=== PATIENT | female | born 1950 | race Caucasian/White ===

== ENCOUNTER 2017-07-31 10:37 | Emergency (ER) | payer MEDICARE, BC ==
[2017-07-31 11:24] VITALS: BP 108/68
--- NOTE | 2017-07-31 11:54 | UC ---
Respiratory Complaint HPI - HPI Summary HPI Summary: 2 weeks of sinus congestion and cough--in past 7 days has had harsh cough with thick green sputum, does not believe she has had fever - History of Current Complaint Hx Obtained From: Patient ?: No Onset/Duration: Gradual Onset, Lasting Weeks - 2, Worse Since - past 7 days Timing: Constant Pain Intensity: 0 Pain Scale Used: 0-10 Numeric Character: Cough: Productive, Sputum Description: - thick green Aggravating Factors: Nothing Alleviating Factors: Nothing Associated Signs And Symptoms: Positive: Wheezing, URI <Anca Sims - Last Filed: 07/31/17 11:59> <Raysa Zaman - Last Filed: 07/31/17 13:05> - History of Current Complaint Chief Complaint: UCRespiratory Stated Complaint: UPPER RESPIRATORY Time Seen by Provider: 07/31/17 11:45 - Allergies/Home Medications Allergies/Adverse Reactions: Allergies Allergy/AdvReac Type Severity Reaction Status Date / Time enviromental Allergy Unknown Congestion Uncoded 07/31/17 11:14 Home Medications: Home Medications D-Methorphan/PE/Acetaminophen [Day Multi-Symp Flu-Severe Cold] 1 each PO PRN 04/18 [History] Levothyroxine TAB* [Synthroid TAB*] 50 mcg PO DAILY 07/31/17 [History Confirmed 07/31/17] Multivitamin [Multiple Vitamins] 1 tab PO DAILY 07/31/17 [History Confirmed 04/18] Rosuvastatin (NF) [Crestor (NF)] 10 mg PO DAILY 07/31/17 [History Confirmed 04/18] PMH/Surg Hx/FS Hx/Imm Hx Previously Healthy: No Endocrine History: Hypothyroidism, Dyslipidemia - Surgical History Surgical History: Yes Surgery Procedure, Year, and Place: BREAST BIOPSIES- BENIGN - Family History Known Family History: Positive: None - Social History Occupation: Retired Lives: Alone Alcohol Use: Occasionally Substance Use Type: None Smoking Status (MU): Never Smoked Tobacco <Anca Sims - Last Filed: 07/31/17 11:59> Review of Systems Constitutional: Negative Skin: Negative Eyes: Negative ENT: Nasal Discharge, Sinus Congestion Respiratory: Cough Cardiovascular: Negative Gastrointestinal: Negative Genitourinary: Negative Motor: Negative Neurovascular: Negative Musculoskeletal: Negative Neurological: Negative Psychological: Negative Is Patient Immunocompromised?: No All Other Systems Reviewed And Are Negative: Yes <Anca Sims - Last Filed: 07/31/17 11:59> Physical Exam Triage Information Reviewed: Yes Appearance: Well-Appearing, No Pain Distress, Well-Nourished Vital Signs: Initial Vital Signs Temp 98.4 F 07/31/17 11:16 Pulse 63 07/31/17 11:16 Resp 18 07/31/17 11:16 BP 108/68 07/31/17 11:16 Pulse Ox 98 07/31/17 11:16 Vital Signs Reviewed: Yes Eye Exam: Normal Eyes: Positive: Conjunctiva Clear ENT Exam: Normal ENT: Positive: Normal ENT inspection, Hearing grossly normal, Pharynx normal, Nasal congestion, Nasal drainage, TMs normal, Uvula midline. Negative: Trismus , Muffled voice, Hoarse voice, Dental tenderness, Sinus tenderness Dental Exam: Normal Neck exam: Normal Neck: Positive: Supple, Nontender, No Lymphadenopathy Respiratory Exam: Normal Respiratory: Positive: Chest non-tender, No respiratory distress, No accessory muscle use, Wheezing Cardiovascular Exam: Normal Cardiovascular: Positive: RRR, No Murmur, Pulses Normal, Brisk Capillary Refill Musculoskeletal Exam: Normal Musculoskeletal: Positive: Strength Intact, ROM Intact, No Edema Neurological Exam: Normal Neurological: Positive: Alert, Muscle Tone Normal Psychological Exam: Normal Skin Exam: Normal <Anca Sims - Last Filed: 07/31/17 11:59> Vital Signs: Initial Vital Signs Temp 98.4 F 07/31/17 11:16 Pulse 63 07/31/17 11:16 Resp 18 07/31/17 11:16 BP 108/68 07/31/17 11:16 Pulse Ox 98 07/31/17 11:16 <Raysa Zaman - Last Filed: 07/31/17 13:05> UC Diagnostic Evaluation - Laboratory O2 Sat by Pulse Oximetry: 98 <Anca Sims - Last Filed: 07/31/17 11:59> Respiratory Course/Dx - Course Course Of Treatment: increase fluids, albuterol, flonase, zithromax, tylenol/ ibuprofen for pain follow with pcp prn - Differential Dx/Diagnosis Provider Diagnoses: acute bronchitis, bronchospasm <Anca Sims - Last Filed: 07/31/17 11:59> Discharge - Sign-Out/Discharge Documenting (check all that apply): Discharge/Admit/Transfer - Billing Disposition and Condition Condition: STABLE Disposition: HOME <Anca Sims - Last Filed: 07/31/17 11:59> - Billing Disposition and Condition Condition: STABLE Disposition: HOME <Raysa Zaman - Last Filed: 07/31/17 13:05> - Discharge Plan Condition: Stable Disposition: HOME Prescriptions: Albuterol HFA INHALER* [Ventolin HFA Inhaler*] 2 puff INH Q4H PRN #1 mdi PRN Reason: cough/wheeze Azithromycin TAB* [Zithromax TAB (Z-SIMA) 250 mg #6 tabs] 2 tab PO .TODAY, THEN 1 DAILY #1 sima Fluticasone NASAL SPRAY 50MCG* [Flonase NASAL SPRAY 50MCG*] 2 spray BOTH NARES DAILY #1 btl Patient Education Materials: Acute Bronchitis (ED), How to Use a Metered-Dose Inhaler and a Spacer (ED), How to Use Nasal Rowdy (ED) Referrals: Dony Francois MD [Primary Care Provider] - If Needed Attestation Statement User Type: Provider - I was available for consult. This patient was seen by the CRIST[facility]. The patient was not presented to, seen by, or examined by me. -Dustin <Raysa Zaamn - Last Filed: 07/31/17 13:05>
== END 2017-07-31 12:06 | disposition home or self-care (01) ==
LOC: UCCORT 10:37
DX: J21.9 Acute bronchiolitis, unspecified (principal); R09.81 Nasal congestion; E03.9 Hypothyroidism, unspecified; Z79.899 Other long term (current) drug therapy; Z91.09 Other allergy status, other than to drugs and biological substances
CPT/HCPCS: 99212; G0463

== ENCOUNTER 2021-10-11 13:00 | Inpatient (IN) ==
[2021-10-11 13:24] LABS: Hematocrit 28 % (35-47); Hemoglobin 9.3 g/dL (12.0-16.0); Mean Corpuscular HGB Conc 33 g/dL (31-36); Mean Corpuscular Hemoglobin 28 pg (27-31); Mean Corpuscular Volume 84 fL (80-97); Mean Platelet Volume 6.1 fL (7.4-10.4); Platelet Count 226 10^3/uL (150-450); Red Blood Count 3.36 10^6 /uL (3.70-4.87); Red Cell Distribution Width 21 % (10-15); White Blood Count 1.2 10^3/uL (3.5-10.8)
[2021-10-11 13:53] LABS: INR 1.1 (0.89-1.11)
[2021-10-11 14:05] LABS: Albumin 3.6 g/dL (3.2-5.2); Albumin/Globulin Ratio 1.4 (1-3); C Reactive Protein 78.26 mg/L (<8.01); Calcium 8.3 mg/dL (8.6-10.3); Globulin 2.5 g/dL (2-4); Potassium 3.4 mmol/L (3.5-5.0); Total Bilirubin 0.6 mg/dL (0.2-1.0); Total Protein 6.1 g/dL (6.4-8.9); eGFR CKD-EPI 100.2 (>60)
[2021-10-11 14:08] LABS: ABS Lymphocytes 0.1 10^3/ul (1.0-4.8); ABS Monocytes 0.3 10^3/ul (0-0.8); ABS Neutrophils 0.8 10^3/ul (1.5-7.7); Eosinophil % 1.1 %; Lymphocyte % 7.7 %; Nucleated Red Blood Cells % 0.4
[2021-10-11] MEDS ORDERED: Famotidine IV 10 MG/ML 2 ml VIAL (20 mg) IV SLOW PU ONE (14:19)
[2021-10-11] MEDS ORDERED: methylPREDNISolone SOD SUCC 125 mg 2 ML VIAL IV ONE (14:30)
[2021-10-11] MEDS ORDERED: fentaNYL 100 mcg/2 ml 50 MCG/ML VIAL IV SLOW PU ONE ×2 (14:53→15:37)
[2021-10-11] MEDS ORDERED: Ondansetron 4 mg VIAL 2 MG/ML 2 ml VIAL IV ONE (15:37)
[2021-10-11 16:53] LABS: Erythrocyte Sed Rate 60 mm/Hr (0-29)
[2021-10-11] MEDS ORDERED: Potassium Chlor 20 meq TAB.ER PO ONE ×2 (17:48)
[2021-10-11 18:20] LABS: HDL Cholesterol 46.9 mg/dL
[2021-10-11] MEDS ORDERED: Ondansetron ODT 4 mg TAB 4 MG TAB PO PRN (18:46)
[2021-10-11] MEDS: Enoxaparin 40 MG/0.4 ML SYR SUBCUT SCH (18:55)
[2021-10-11] MEDS: fentaNYL Patch Check Q Shift NOTE FOLLOW UP SCH (20:36)
[2021-10-11] MEDS: Mupirocin 2% OINT TUBE TOPICAL SCH (21:01)
[2021-10-11] MEDS: Magnesium Hydroxide LIQ 30 ML UDC PO PRN (23:20)
[2021-10-11] MEDS: Senna TAB 8.6 mg TAB PO PRN (23:21)
[2021-10-12] MEDS ORDERED: Albuterol HFA INHALER 8 gm MDI INH PRN (00:55)
[2021-10-12 01:16] LABS: Urine Appearance Clear; Urine Bilirubin Negative (Negative); Urine Blood Negative (Negative); Urine Color Yellow; Urine Glucose 1+ (250mg/dL) (Negative); Urine Ketones Negative (Negative); Urine Nitrite Negative (Negative); Urine Protein Negative (Negative)
[2021-10-12 05:05] LABS: Hematocrit 29 % (35-47); Hemoglobin 9.7 g/dL (12.0-16.0); Mean Corpuscular HGB Conc 33 g/dL (31-36); Mean Corpuscular Hemoglobin 29 pg (27-31); Mean Corpuscular Volume 87 fL (80-97); Red Blood Count 3.37 10^6 /uL (3.70-4.87); Red Cell Distribution Width 21 % (10-15); White Blood Count 1.1 10^3/uL (3.5-10.8)
[2021-10-12 06:20] LABS: Calcium 8.5 mg/dL (8.6-10.3); Potassium 4.5 mmol/L (3.5-5.0)
[2021-10-12 06:26] LABS: eGFR CKD-EPI 100.2 (>60)
[2021-10-12 06:49] LABS: ABS Lymphocytes 0.2 10^3/ul (1.0-4.8); ABS Monocytes 0.1 10^3/ul (0-0.8); ABS Neutrophils 0.8 10^3/ul (1.5-7.7); Eosinophil % 0.4 %; Lymphocyte % 14.5 %; Mean Platelet Volume 6.7 fL (7.4-10.4); Nucleated Red Blood Cells % 0.8; Platelet Count 234 10^3/uL (150-450)
[2021-10-12] MEDS: fentaNYL Patch Check Q Shift NOTE FOLLOW UP SCH ×2 (07:13→19:23)
[2021-10-12] MEDS: Polyethylene Glycol 3350 17 GM PACKET PO SCH (09:55)
[2021-10-12] MEDS: Sucralfate 1 gm SUSP 1 GM/10 ML UDC PO SCH ×3 (09:55→16:33)
[2021-10-12] MEDS: Senna TAB 8.6 mg TAB PO PRN (09:55)
[2021-10-12] MEDS: Magnesium Hydroxide LIQ 30 ML UDC PO PRN (09:55)
[2021-10-12] MEDS: Silver Sulfadiazine 1% 20 gm TUBE TOPICAL SCH ×4 (09:57→21:15)
[2021-10-12] MEDS: Mupirocin 2% OINT TUBE TOPICAL SCH ×2 (10:14→21:15)
[2021-10-12] MEDS: Enoxaparin 40 MG/0.4 ML SYR SUBCUT SCH (16:50)
[2021-10-12] MEDS ORDERED: fentaNYL PATCH 100 MCG/HR 1 PATCH TRANSDERM SCH (18:00)
[2021-10-12] MEDS ORDERED: fentaNYL PATCH 25 MCG/HR 1 PATCH TRANSDERM SCH (18:00)
[2021-10-13] MEDS: fentaNYL Patch Check Q Shift NOTE FOLLOW UP SCH (07:05)
[2021-10-13] MEDS: Sucralfate 1 gm SUSP 1 GM/10 ML UDC PO SCH ×2 (07:58→13:50)
[2021-10-13] MEDS: Polyethylene Glycol 3350 17 GM PACKET PO SCH (08:59)
[2021-10-13] MEDS ORDERED: Lidocaine 2% JELLY 6 ML Topical TOPICAL PRN (09:15)
[2021-10-13] MEDS: Mupirocin 2% OINT TUBE TOPICAL SCH (09:22)
[2021-10-13] MEDS: Senna TAB 8.6 mg TAB PO PRN (10:28)
[2021-10-13] MEDS: Silver Sulfadiazine 1% 20 gm TUBE TOPICAL SCH ×2 (10:55→14:25)
[2021-10-13] MEDS ORDERED: Gadoteridol (CONTRAST) 279.3 MG/ML 10 ML IV ONE (13:13)
[2021-10-13 15:13] VITALS: BP 126/58
== END 2021-10-13 18:25 | disposition home or self-care (01) | DRG 123 ==
LOC: ED 13:00 → EDHOLD 17:25 → SUATTDRO 17:25 → MEDTELE 22:34
PROVIDERS: ADMIT Internal Medicine; ATTEND Internal Medicine